=== PATIENT | female | born 2000 ===

== ENCOUNTER 2024-03-03 16:09 | Emergency (ER) | payer OTHER ==
[~2024-03-03] VITALS: Ht 157.5 cm; Wt 56.7 kg
[2024-03-03 17:09] LABS: Influenza A, PCR NEGATIVE (NEGATIVE); Influenza B, PCR NEGATIVE (NEGATIVE); Resp Syncytial Virus, PCR NEGATIVE (NEGATIVE)
[2024-03-03 17:41] LABS: SARS-Cov-2 (COVID-19) PCR, MMC POSITIVE (NEGATIVE)
[2024-03-03] MEDS ORDERED: Albuterol 2.5 MG/3 ML VIAL INH ONE (19:40)
== END 2024-03-03 20:51 | disposition home or self-care (01) ==
LOC: ER 16:09
PROVIDERS: Physician Assistant
DX: U07.1 COVID-19 (principal)
CPT/HCPCS: 0241U; 94640; 94664